=== PATIENT | male | born 1980 | race Two or more races ===

== ENCOUNTER 2020-01-10 15:01 | Emergency (ER) | payer MEDICAID ==
[~2020-01-10] VITALS: Ht 175.3 cm; Wt 81.6 kg
--- NOTE | 2020-01-10 15:25 | NUR ---
[facility] PAIN S/P FELL OFF A LADDER. DENIES HEAD INJURY. LANDED BUTTOCKS FIRST. NO BRUISES NOTD , PAIN 12/26 @ [facility] , VSS , ATTACHED TO MONITOR
[2020-01-10 15:49] LABS: BASOPHILS % (AUTO) 0.5 % (0.0-2.0); EOSINOPHILS % (AUTO) 1.2 % (0.0-6.0); HEMATOCRIT 44 % (39-51); HEMOGLOBIN 14.7 g/dL (13.5-17.5); LYMPHOCYTES % (AUTO) 12.3 % (20.0-44.0); MEAN CORPUSCULAR HGB CONC 34 g/dl (31.0-36.0); MEAN CORPUSCULAR VOLUME 93 fL (80-96); MONOCYTES # (AUTO) 0.4 /CMM (0.1-1.30); MONOCYTES % (AUTO) 5.3 % (2.0-12.0); NEUTROPHILS # (AUTO) 6.7 /CMM (1.8-8.9); NEUTROPHILS % (AUTO) 80.7 % (43.0-81.0); PLATELET COUNT (AUTO) 193 /CMM (150-450); RED BLOOD CELL COUNT(AUTO) 4.71 MIL/uL (4.5-6.0); WHITE BLOOD COUNT (AUTO) 8.3 K/uL (4.3-11.0)
--- NOTE | 2020-01-10 15:52 | NUR ---
IV STARTED AT LEFT AC # 20 WITH GOOD BLOOD RETURN ,
[2020-01-10] MEDS ORDERED: ONDANSETRON HCL/PF 4 MG/2 ML VIAL ONE (15:54)
[2020-01-10] MEDS ORDERED: MORPHINE SULFATE INJ 2 MG/ML DISP.SYRIN ONE (15:54)
[2020-01-10 16:00] LABS: CALCIUM, SERUM 8.9 mg/dL (8.5-10.1); POTASSIUM 3.6 mmol/L (3.5-5.1)
[2020-01-10] MEDS ORDERED: MORPHINE SULFATE INJ 2 MG/ML DISP.SYRIN IV ONE (16:00)
[2020-01-10] MEDS ORDERED: ONDANSETRON HCL/PF - ER 4 MG/2 ML VIAL IV ONE (16:00)
[2020-01-10] MEDS ORDERED: IOHEXOL-300 100 ML VIAL IV ONE (16:17)
[2020-01-10] MEDS ORDERED: IV NS 0.9% 250 ML IV ONE (16:17)
[2020-01-10] MEDS ORDERED: CT SWABBABLE VALVE TRANS SET 1 EA INFUS.SET MC ONE (16:17)
--- NOTE | 2020-01-10 16:50 | NUR ---
CALLED [facility] [employer] [employer]. AWAITNG CALL BACK
--- NOTE | 2020-01-10 17:08 | NUR ---
CALLED A FOLLOW UP FOR [facility]
--- NOTE | 2020-01-10 18:10 | NUR ---
RIGHT ARM CAST / IMMOBILIZER PLACED BY KIAH KEEN STABLE
--- NOTE | 2020-01-10 18:45 | NUR ---
additional CT scan ordered
--- NOTE | 2020-01-10 18:55 | NUR ---
TRANSFERED PT TO CT DEPT , PT STABLE
--- NOTE | 2020-01-10 18:58 | NUR ---
PT COMPLAINING OF PAIN 10/10 AT RIGHT ARM , NOTIFIED MD , AWAITING FOR ORDERS
[2020-01-10] MEDS ORDERED: IBUPROFEN 600 MG TABLET PO ONE ×2 (19:17→19:30)
[2020-01-10] MEDS ORDERED: oxyCODONE/APAP (5/325 MG) 1 UDTAB TABLET ONE (19:17)
--- NOTE | 2020-01-10 19:24 | NUR ---
PT CLEARED FOR DISCHARGE PER DR. RODRÍGUEZ. PT AND PT FAMILY RECEIVD DISCHARGE INSTRUCTIONS. PT AND PT FAMILY VERBALIZED UNDERSTANDING. PT AMBULATORY WITH STEADY GAIT. PT INSTRUCTED NOT TO DRIVE. PT VERBALIZED UNDERSTANDING. IV removed. Catheter intact and site benign. Pressure and 4x4 applied to site. No bleeding noted.
[2020-01-10] MEDS ORDERED: oxyCODONE/APAP (5/325 MG) 1 UDTAB TABLET PO ONE (19:30)
[2020-01-10 19:31] VITALS: BP 145/78
== END 2020-01-10 19:31 | disposition home or self-care (01) ==
LOC: ER 15:03
DX: S42.351A Displaced comminuted fracture of shaft of humerus, right arm, initial encounter for closed fracture (principal); S16.1XXA Strain of muscle, fascia and tendon at neck level, initial encounter; S30.0XXA Contusion of lower back and pelvis, initial encounter; S20.211A Contusion of right front wall of thorax, initial encounter; W11.XXXA Fall on and from ladder, initial encounter; Y93.89 Activity, other specified; Y92.89 Other specified places as the place of occurrence of the external cause; Y99.8 Other external cause status
CPT/HCPCS: 36415; 71260; 72125; 73060; 74177; 80048; 85025; 96374; 96375; 99285; J2270; J2405; J7050; Q9967

== ENCOUNTER 2022-04-26 09:02 | Emergency (ER) | payer MEDICAID ==
[~2022-04-26] VITALS: Ht 172.7 cm; Wt 90.7 kg
--- NOTE | 2022-04-26 11:13 | NUR ---
TO ER 7,NO APPARENT CHANGE IN CONDITION
--- NOTE | 2022-04-26 11:54 | NUR ---
SWAB FOR COVID19 AND RAPID ANTIGEN SENT TO LAB
[2022-04-26] MEDS ORDERED: GUAIFENESIN/D-METHORPHAN HB 5 ML UDC ONE (12:00)
[2022-04-26] MEDS: GUAIFENESIN/D-METHORPHAN HB 5 ML UDC PO ONE (12:00)
[2022-04-26] MEDS ORDERED: GUAI1TBM19 PO (13:11)
[2022-04-26] MEDS ORDERED: BENZ-13 PO (13:11)
[2022-04-26 13:24] VITALS: BP 140/95
--- NOTE | 2022-04-26 13:24 | NUR ---
Patient discharged to home in stable condition. Written and verbal after care instructions given. Patient verbalizes understanding of instruction.
== END 2022-04-26 13:24 | disposition home or self-care (01) ==
LOC: ER 09:07
DX: J06.9 Acute upper respiratory infection, unspecified (principal); B97.89 Other viral agents as the cause of diseases classified elsewhere; Z20.822 Contact with and (suspected) exposure to COVID-19
CPT/HCPCS: 71045-TC; C9803

== ENCOUNTER 2022-08-09 11:52 | Emergency (ER) | payer MEDICAID ==
[~2022-08-09] VITALS: Ht 165.1 cm; Wt 89.8 kg
[~2022-08-09 11:52] MED LIST: BENZ-13 PO; GUAI1TBM19 PO
--- NOTE | 2022-08-09 12:20 | NUR ---
PT CAME INTO ER C/P BILATERAL LOWER ABDOMINAL PAIN SINCE THIS MORNING THAT RADIATES TO LEFT LOWER BACK WITH NAUSEA AND DYSURIA. PT AMBULATED TO BED WITH STEADY GAIT. CONNECTED TO MONITOR. AWAITING MD ORDERS.
--- NOTE | 2022-08-09 12:33 | NUR ---
IV LINE LEFT AC 20
--- NOTE | 2022-08-09 12:35 | NUR ---
BLOOD SAMPLE OBTAINED
--- NOTE | 2022-08-09 12:35 | NUR ---
URINE SAMPLE OBTAINED
[2022-08-09] MEDS ORDERED: predniSONE 20 MG TABLET ONE (13:29)
[2022-08-09] MEDS ORDERED: predniSONE 20 MG TABLET PO ONE (13:30)
[2022-08-09] MEDS ORDERED: IPRATROPIUM NEB FS 0.5 MG/2.5 ML AMPUL.NEB NEB ONE (13:30)
[2022-08-09] MEDS ORDERED: ALBUTEROL FS 2.5 MG/3 ML VIAL.NEB NEB ONE (13:30)
--- NOTE | 2022-08-09 13:31 | NUR ---
xray at bedside.
[2022-08-09] MEDS ORDERED: ALBUTEROL FS 2.5 MG/3 ML VIAL.NEB ONE (13:39)
[2022-08-09] MEDS ORDERED: IPRATROPIUM NEB FS 0.5 MG/2.5 ML AMPUL.NEB ONE (13:39)
[2022-08-09] MEDS ORDERED: IV NS 0.9% 1,000 ML BAG IV ONE (14:00)
[2022-08-09] MEDS ORDERED: MORPHINE SULFATE INJ 2 MG/ML DISP.SYRIN IV ONE (14:00)
[2022-08-09] MEDS ORDERED: ONDANSETRON HCL/PF 4 MG/2 ML VIAL IVP ONE (14:00)
[2022-08-09] MEDS ORDERED: MORPHINE SULFATE INJ 4 MG/ML DISP.SYRIN ONE (14:17)
[2022-08-09] MEDS ORDERED: ONDANSETRON HCL/PF 4 MG/2 ML VIAL ONE (14:17)
[2022-08-09 14:22] LABS: BASOPHILS % (AUTO) 0.2 % (0.0-2.0); EOSINOPHILS % (AUTO) 2.3 % (0.0-6.0); HEMATOCRIT 46 % (39-51); HEMOGLOBIN 15.6 g/dL (13.5-17.5); LYMPHOCYTES # (AUTO) 1.7 K/uL (0.8-4.8); LYMPHOCYTES % (AUTO) 24.9 % (20.0-44.0); MEAN CORPUSCULAR HGB CONC 34 g/dl (31.0-36.0); MEAN CORPUSCULAR VOLUME 89 fL (80-96); MONOCYTES # (AUTO) 0.4 K/uL (0.1-1.30); MONOCYTES % (AUTO) 5.3 % (2.0-12.0); NEUTROPHILS # (AUTO) 4.6 K/uL (1.8-8.9); NEUTROPHILS % (AUTO) 67.3 % (43.0-81.0); PLATELET COUNT (AUTO) 214 K/uL (150-450); RED BLOOD CELL COUNT(AUTO) 5.15 MIL/uL (4.5-6.0); WHITE BLOOD COUNT (AUTO) 6.9 K/uL (4.3-11.0)
[2022-08-09 15:17] LABS: ALBUMIN 3.9 g/dL (3.4-5.0); BILIRUBIN,DIRECT 0.1 mg/dL (0.0-0.2); BILIRUBIN,TOTAL 0.4 mg/dL (0.2-1.0); CALCIUM, SERUM 9.1 mg/dL (8.5-10.1); CREATININE 0.9 mg/dL (0.6-1.3); POTASSIUM 3.5 mmol/L (3.5-5.1); TOTAL PROTEIN, SERUM 8.1 g/dL (6.4-8.2)
--- NOTE | 2022-08-09 15:32 | NUR ---
2ND URINE SAMPLE OBTAINED SENT TO LAB
[2022-08-09 16:34] LABS: BILIRUBIN,URINE NEGATIVE (NEGATIVE); COLOR,URINE YELLOW (YELLOW); LEUKOCYTE ESTERASE ,URINE NEGATIVE (NEGATIVE); NITRITE, URINE NEGATIVE (NEGATIVE); PROTEIN,URINE NEGATIVE (NEGATIVE); UGLUCOSE NEGATIVE (NEGATIVE); UROBILINOGEN,URINE 0.2 EU/dL (0.2)
[2022-08-09] MEDS ORDERED: IBUP-1955 PO (17:15)
[2022-08-09] MEDS ORDERED: TRAM50TA2 PO (17:16)
[2022-08-09] MEDS ORDERED: HYDROCODONE/APAP 5/325MG TABLET ONE (17:19)
[2022-08-09] MEDS ORDERED: IBUPROFEN 600 MG TABLET ONE (17:20)
--- NOTE | 2022-08-09 17:20 | NUR ---
IV removed. Catheter intact and site benign. Pressure and 4x4 applied to site. No bleeding noted.
--- NOTE | 2022-08-09 17:21 | NUR ---
Patient discharged to home in stable condition. Written and verbal after care instructions given. Patient verbalizes understanding of instruction.
[2022-08-09 17:30] VITALS: BP 151/93
[2022-08-09] MEDS ORDERED: HYDROCODONE/APAP 5/325MG TABLET PO ONE (17:30)
[2022-08-09] MEDS ORDERED: IBUPROFEN 600 MG TABLET PO ONE (17:30)
== END 2022-08-09 17:30 | disposition home or self-care (01) ==
LOC: ER 11:53
DX: R10.31 Right lower quadrant pain (principal); Z79.899 Other long term (current) drug therapy
CPT/HCPCS: 99285; 74176; 96374; 71045; 96361; 96375; 76870; 85025; 80048; 83690; 80076; 81003; 36415; 85730; 94640; J2270; J7512; J2405

== ENCOUNTER 2023-08-24 18:55 | Emergency (ER) | payer MEDICAID ==
[~2023-08-24] VITALS: Ht 170.2 cm; Wt 81.6 kg
[~2023-08-24 18:55] MED LIST changes: +IBUP-1955 PO; +TRAM50TA2 PO
[2023-08-24 19:37] VITALS: TEMP 98.4
[2023-08-24] MEDS ORDERED: KETOROLAC TROMETHAMINE 15 MG/ML VIAL ONE (20:21)
[2023-08-24] MEDS ORDERED: ACETAMINOPHEN ES 500 MG TABLET ONE (20:21)
[2023-08-24] MEDS ORDERED: CYCLOBENZAPRINE 10 MG TABLET ONE (20:22)
[2023-08-24] MEDS: CYCLOBENZAPRINE 10 MG TABLET PO ONE (20:28)
[2023-08-24] MEDS: KETOROLAC TROMETHAMINE 15 MG/ML VIAL IM ONE (20:28)
[2023-08-24] MEDS: ACETAMINOPHEN ES 500 MG TABLET PO ONE (20:28)
[2023-08-24] MEDS ORDERED: NAPR-1164 PO (21:31)
[2023-08-24] MEDS ORDERED: ACET-2605 PO (21:31)
[2023-08-24 21:41] VITALS: BP 135/89; O2SAT 98
== END 2023-08-24 21:42 | disposition home or self-care (01) ==
LOC: ER 19:04
DX: S32.2XXA Fracture of coccyx, initial encounter for closed fracture (principal); E78.5 Hyperlipidemia, unspecified; X58.XXXA Exposure to other specified factors, initial encounter; Y93.89 Activity, other specified; Y92.89 Other specified places as the place of occurrence of the external cause; Y99.8 Other external cause status
CPT/HCPCS: 99283; 96372; 72220; J1885

== ENCOUNTER 2024-10-21 08:04 | Emergency (ER) | payer MEDICAID ==
[~2024-10-21] VITALS: Ht 170.2 cm; Wt 89.8 kg
[~2024-10-21 08:04] MED LIST changes: +ACET-2605 PO; +NAPR-1164 PO
[2024-10-21 08:10] VITALS: BP 147/108; TEMP 98.3
[2024-10-21] MEDS ORDERED: AZIT1PAC9 PO (08:59)
[2024-10-21 09:39] VITALS: O2SAT 96
== END 2024-10-21 09:40 | disposition home or self-care (01) ==
LOC: ER 08:10
DX: J18.9 Pneumonia, unspecified organism (principal); R04.2 Hemoptysis; E78.5 Hyperlipidemia, unspecified; Z79.1 Long term (current) use of non-steroidal anti-inflammatories (NSAID); Z79.899 Other long term (current) drug therapy
CPT/HCPCS: 71045-TC

== ENCOUNTER 2025-01-20 22:42 | Emergency (ER) | payer SELFPAY ==
[~2025-01-20 22:42] MED LIST changes: +AZIT1PAC9 PO
== END 2025-01-21 01:00 | disposition left against medical advice (07) ==
LOC: ER 22:44
DX: R51.9 Headache, unspecified (principal); R03.0 Elevated blood-pressure reading, without diagnosis of hypertension; Z53.21 Procedure and treatment not carried out due to patient leaving prior to being seen by health care provider

== ENCOUNTER 2025-01-24 17:26 | Emergency (ER) | payer MEDICAID ==
[~2025-01-24] VITALS: Ht 172.7 cm; Wt 90.7 kg
[2025-01-24 18:02] VITALS: BP 136/65; TEMP 98.3; O2SAT 99
[2025-01-24] MEDS ORDERED: TDAP [DIPH/PERTUSSIS/TET] 0.5 ML VIAL IM ONE (20:49)
[2025-01-24] MEDS: TDAP [DIPH/PERTUSSIS/TET] 0.5 ML VIAL IM ONE (20:52)
== END 2025-01-24 22:09 | disposition home or self-care (01) ==
LOC: ER 17:29
DX: S61.312A Laceration without foreign body of right middle finger with damage to nail, initial encounter (principal); M79.645 Pain in left finger(s); E78.5 Hyperlipidemia, unspecified; Z79.1 Long term (current) use of non-steroidal anti-inflammatories (NSAID); Z79.899 Other long term (current) drug therapy; W27.8XXA Contact with other nonpowered hand tool, initial encounter; Y93.89 Activity, other specified; Y92.89 Other specified places as the place of occurrence of the external cause; Y99.8 Other external cause status
CPT/HCPCS: 90715

== ENCOUNTER 2025-02-05 16:45 | Emergency (ER) | payer MEDICAID ==
[~2025-02-05] VITALS: Ht 175.3 cm; Wt 90.7 kg
[2025-02-05 17:10] VITALS: BP 120/82; TEMP 98; O2SAT 95
== END 2025-02-05 17:10 | disposition home or self-care (01) ==
LOC: ER 16:48
DX: S61.213D Laceration without foreign body of left middle finger without damage to nail, subsequent encounter (principal); Z48.02 Encounter for removal of sutures; E78.5 Hyperlipidemia, unspecified; Z79.1 Long term (current) use of non-steroidal anti-inflammatories (NSAID); Z79.899 Other long term (current) drug therapy; X58.XXXD Exposure to other specified factors, subsequent encounter